=== PATIENT | male | born 2000 | race Two or more races ===

== ENCOUNTER 2024-07-19 03:17 | Emergency (ER) | payer OTHER ==
[~2024-07-19] VITALS: Ht 160 cm; Wt 72.7 kg
[2024-07-19 04:46] VITALS: BP 129/78; PULSE 90; RESP 18; TEMP 98; O2SAT 98
--- NOTE | 2024-07-19 04:47 | ED.PDOC ---
SOB-HPI HPI Comments PT PRESENTS TO ED W/ CC OF FLU LIKE SYMPTOMS X 3 DAYS ASSOCIATED W/ EARACHE, NARGIS DY ACHES, COUGH, SORE THROAT, NAUSEA AND VOMITING. CURRENTLY PT A&OX4, VSS, RR EVEN AND UNLABORED ON RA. DENIES DIFFICULTY BREATHING, CHEST PAIN, OR SHORTNESS OF BREATH. Chief Complaint: Flu like Time Seen by MD: 03:21 Reviewed notes: Nurses Notes, Medications, Allergies Information Source: Patient Mode of Arrival: Ambulatory Past Medical History PAST MEDICAL HISTORY: Denies Surgical History: Denies all surgeries Family History Family History: Reviewed,noncontributory to illness Social History Smoker: Non-Smoker Alcohol: Denies ETOH Use Drugs: Denies Drug Use Constitutional: reports: fever; denies: chills, diaphoresis, fatigue, malaise, sweats, weakness, others EENTM: reports: ear pain, throat pain; denies: blurred vision, double vision, ear bleeding, ear discharge, ear drainage, ear ringing, eye pain, eye redness, hearing loss, mouth pain, mouth swelling, nasal discharge, nose bleeding, nose congestion, nose pain, photophobia, tearing, throat swelling, voice changes, others Respiratory: reports: cough; denies: hemoptysis, orthopnea, SOB at rest, shortness of breath, SOB with excertion, stridor, wheezing, others Cardiovascular: denies: chest pain, dizzy spells, diaphoresis, Dyspnea on exertion, edema, irregular heart beat, left arm pain, lightheadedness, palpitations, PND, syncope, others Gastrointestinal: reports: nausea, vomiting; denies: abdomen distended, abdominal pain, blood streaked bowels, constipated, diarrhea, dysphagia, difficulty swallowing, hematemesis, melena, poor appetite, poor fluid intake, rectal bleeding, rectal pain, others Genitourinary: denies: burning, dysuria, flank pain, frequency, hematuria, incontinence, penile discharge, penile sore, pain, testicle pain, testicle swelling, urgency, others Neurological: denies: dizziness, fainting, headache, left sided numbness, left sided weakness, numbness, paresthesia, pre-existing deficit, right sided numbness, right sided weakness, seizure, speech problems, tingling, tremors, weakness, others Musculoskeletal: denies: back pain, gout, joint pain, joint swelling, muscle pain, muscle stiffness, neck pain, others Integumetry: denies: bruises, change in color, change in hair/nails, dryness, laceration, lesions, lumps, rash, wounds, others Allergic/Immunocompromised: denies: Difficulty Healing, Frequent Infections, Hives, Itching, others Hematologic/Lymphatic: denies: anemia, blood clots, easy bleeding, easy bruising, swollen glands, others Endocrine: denies: excessive hunger, excessive sweating, excessive thirst, excessive urination, flushing, intolerance to cold, intolerance to heat, unexplained weight gain, unexplained weight loss, others Psychiatric: denies: anxiety, bipolar disorder, depression, hopeless, panic disorder, schizophrenia, sleepless, suicidal, others Physical Exam General Appearance: No Apparent Distress, Normal HEENT: Pharyngeal Erythema, TMs Normal Neck: Full Range of Motion, Non-Tender Respiratory: Lungs Clear, No Respiratory Distress, Normal Breath Sounds Cardiovascular: No Edema, No JVD, No Murmur, No Gallop, Normal Peripheral Pulses, Regular Rate/Rhythm Breast Exam: Deferred Gastrointestinal: No Organomegaly, Non Tender, No Pulsatile Mass, Normal Bowel Sounds, Soft Genitalia: Deferred Pelvic: Deferred Rectal: Deferred Extremities: Normal capillary refill, Normal inspection, Normal range of motion, Non-tender, No pedal edema Musculoskeletal : Apperance: Normal Neurologic: Alert, pyridine operator II-XII nml as Tested, No Motor Deficits, Normal Affect, Normal Mood, No Sensory Deficits Cerebellar Function: Normal Reflexes: Normal Skin: Dry, Normal Color, Warm Lymphatic: No Adenopathy Was a procedure done? Was a procedure done?: No Differential Dx Differential Diagnosis: Pneumonia, Otitis Media, Peritonsillar Abscess, Peritonsillar Cellulitis, Pharyngitis, URI X-Ray, Labs, Meds, VS Vital Signs Date Time Temp Pulse Resp B/P (MAP) Pulse Ox O2 Delivery O2 Flow Rate FiO2 07/19/24 04:46 90 18 98 Room Air 07/19/24 04:46 98.0 90 18 129/78 (95) 98 98.0 07/19/24 03:36 98.8 82 20 127/85 (99) 97 X-Ray, Labs, Meds, VS Comment LIKELY BACTERIAL WE WILL TRIAL AUGMENTIN, AND PROMETHAZINE-DM FOR THE COUGH, AND MEDROL DOSEPAK. REST INCREASE P.O. FLUIDS WITH ELECTROLYTES [id number] TYLENOL OR MOTRIN NEEDED FOR PAIN OR FEVER PER LABELED DOSING INSTRUCTIONS ER RETURN PRECAUTIONS GIVEN PATIENT INDICATED UNDERSTANDING AGREES WITH DISCHARGE PLAN OF CARE. Time of 1ST Reevaluation: 05:10 Reevaluation 1ST: Improved Patient Education/Counseling: Diagnosis, Treatment, Prognosis, Need For Follow Up Family Education/Counseling: No Family Present Departure 1 Departure Time of Disposition: 05:11 Impression: Primary Impression: URI (upper respiratory infection) Qualified Codes: J06.9 - Acute upper respiratory infection, unspecified Disposition: HOME / SELF CARE / HOMELESS Condition: Stable e-Prescriptions Promethazine-Dm (Promethazine Dm 6.25-15 mg/5Ml) 1 Mary Mary 5 ML PO TID for 5 Days, #75 ML Prov: NAVID BRUCE 07/19/24 Methylprednisolone (Medrol Dosepak) 4 Mg Edi 4 MG PO UD for 6 Days, #21 TAB UAD Prov: NAVID BRUCE 07/19/24 Amoxicillin & Pot Clavulanate (AUGMENTIN TABLET) 875 Mg Tb 875 MG PO BID for 7 Days, #14 TAB Prov: NAVID BRUCE 07/19/24 Discharged With: Self Critical Care Note Critical Care Time?: No Stability Stability form required: No Heart Score Heart Score: Heart Score Response (Comments) Value History N/A 0 EKG N/A 0 Age <45 0 Risk Factors N/A 0 Troponin N/A 0 Total 0 NAVID BRUCE Jul 19, 2024 04:47
[2024-07-19] MEDS ORDERED: PROM1SOL4 PO (05:16)
[2024-07-19] MEDS ORDERED: AUG875T PO (05:16)
[2024-07-19] MEDS ORDERED: METH4PAK PO (05:16)
== END 2024-07-19 05:38 | disposition home or self-care (01) ==
LOC: ER 03:17
DX: J06.9 Acute upper respiratory infection, unspecified (principal)